=== PATIENT | female | born 1960 | race Two or more races ===

== ENCOUNTER 2019-08-12 17:03 | Emergency (ER) | payer MEDICAID ==
[~2019-08-12] VITALS: Ht 154.9 cm; Wt 59.9 kg
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
[2019-08-12] MEDS ORDERED: IBUPROFEN 600 MG TABLET PO ONE ×2 (17:29→17:30)
--- NOTE | 2019-08-12 17:45 | NUR ---
[facility] AT BEDSIDE
[2019-08-12 18:10] VITALS: BP 113/81
--- NOTE | 2019-08-12 18:11 | NUR ---
Patient discharged to home in stable condition. Written and verbal after care instructions given. Patient verbalizes understanding of instruction.
== END 2019-08-12 18:11 | disposition home or self-care (01) ==
LOC: ER 17:06
DX: M25.551 Pain in right hip (principal); M54.5 Low back pain; R07.89 Other chest pain; I10 Essential (primary) hypertension; E11.9 Type 2 diabetes mellitus without complications; Z88.0 Allergy status to penicillin; V49.49XA Driver injured in collision with other motor vehicles in traffic accident, initial encounter; Y93.89 Activity, other specified; Y92.413 State road as the place of occurrence of the external cause; Y99.8 Other external cause status
CPT/HCPCS: 71045-TC; 72100-TC; 73502; 73552